=== PATIENT | male | born 1985 | race Caucasian/White ===

== ENCOUNTER 2018-01-23 02:37 | Inpatient (IN) | payer MEDICAID, OTHER ==
[2018-01-23 03:44] LABS: Amphetamine Screen,Urine Not Detected (NotDetected); Barbiturate Screen,Urine Not Detected (NotDetected); Benzodiazepines Screen,Urine Not Detected (NotDetected); Cocaine Screen,Urine Not Detected (NotDetected); Methadone Screen, Urine Not Detected (NotDetected); Opiate Screen,Urine Not Detected (NotDetected); Oxycodone Screen, Urine Not Detected (NotDetected); Phencyclidine Screen,Urine Not Detected (NotDetected); Tricyclic Antidepressant,Urine Not Detected (NotDetected); Urn Cannabinoid Scrn Detected (NotDetected)
[2018-01-23 03:47] LABS: HCT 46.2 % (39.0-53.0); HGB 15.2 gm/dL (13.0-17.5); MCH 31.2 pg (25.0-35.0); MCHC 32.9 g/dL (31.0-37.0); MCV 94.7 fL (80.0-100.0); Mean Platelet Volume 7.1; Platelet Count 342 k/uL (150-450); RBC 4.88 m/uL (4.30-5.90); RDW 12.8 % (11.5-15.5); WBC 12.5 k/uL (3.8-10.6)
[2018-01-23 03:59] LABS: Band Neutrophils % 1 %; Eosinophils # (M) 0.38 k/uL (0-0.7); Lymphocytes # (M) 2.25 k/uL (1.0-4.8); Neutrophils % (M) 70 %; Nucleated Red Blood Cells 0 /100 WBC (0-0); Total Cells Counted 100
[2018-01-23 04:04] LABS: Anion Gap 10 mmol/L; Blood Urea Nitrogen 9 mg/dL (9-20); Carbon Dioxide 22 mmol/L (22-30); Chloride 110 mmol/L (98-107); Glucose 94 mg/dL (74-99); Potassium 4.8 mmol/L (3.5-5.1); Sodium 142 mmol/L (137-145)
--- NOTE | 2018-01-23 04:12 | ED ---
Psych HPI - General Chief Complaint: Psychiatric Symptoms Stated Complaint: Mental Health Time Seen by Provider: 01/23/18 03:29 Source: patient Mode of arrival: ambulatory - History of Present Illness Initial Comments: This patient is a 32-year-old man brought to have psychiatric evaluation. The patient reports that his girlfriend had called police to have him evaluated. He states that he had become angry over being accused of using methamphetamine, after he tested positive for that. The patient reports he was taking a cough medicine for an upper respiratory infection then that he believes this is responsible for the positive test. He states that he had angry and did a couple of days of drinking. During that time he states that he did make some suicidal statements to his girlfriend. There is a petition that accompanies the patient stating that he has made suicidal statements. MD Complaint: other -: days(s) Associated Psychiatric Symptoms: depression Improves With: none Worsens With: none Context: recent alcohol abuse Associated Symptoms: denies other symptoms - Related Data Home Medications Medication Instructions Recorded Confirmed No Known Home Medications 01/23/18 01/23/18 Allergies Allergy/AdvReac Type Severity Reaction Status Date / Time No Known Allergies Allergy Verified 01/23/18 02:56 Review of Systems ROS Statement: Those systems with pertinent positive or pertinent negative responses have been documented in the HPI. ROS Other: All systems not noted in ROS Statement are negative. Constitutional: Denies: fever, chills Eyes: Denies: vision change Respiratory: Denies: cough, dyspnea Cardiovascular: Denies: chest pain Gastrointestinal: Denies: abdominal pain, vomiting, diarrhea Musculoskeletal: Denies: back pain Neurological: Denies: headache Psychiatric: Reports: depression. Denies: auditory hallucinations, visual hallucinations, homicidal thoughts, suicidal thoughts Past Medical History Past Medical History: No Reported History History of Any Multi-Drug Resistant Organisms: None Reported Past Surgical History: No Surgical Hx Reported Past Psychological History: ADD/ADHD Smoking Status: Current every day smoker Past Alcohol Use History: Daily Past Drug Use History: Marijuana General Exam Limitations: no limitations General appearance: alert, in no apparent distress Head exam: Present: atraumatic, normocephalic Eye exam: Present: normal appearance. Absent: scleral icterus, conjunctival injection ENT exam: Present: normal oropharynx Respiratory exam: Present: normal lung sounds bilaterally. Absent: respiratory distress, wheezes, rales, rhonchi, stridor Cardiovascular Exam: Present: regular rate, normal rhythm, normal heart sounds. Absent: systolic murmur, diastolic murmur, rubs, gallop GI/Abdominal exam: Present: soft. Absent: distended, tenderness, guarding, rebound, mass Neurological exam: Present: alert, normal gait Psychiatric exam: Present: normal affect. Absent: normal mood, depressed, agitated, anxious, flat affect Skin exam: Present: warm, dry, intact, normal color. Absent: rash Course Vital Signs 01/23/18 02:50 Temperature 98.4 F Pulse Rate 120 H Respiratory 18 Rate Blood Pressure 110/70 O2 Sat by Pulse 99 Oximetry Medical Decision Making - Lab Data Result diagrams: 01/23/18 03:36 01/23/18 03:36 Lab Results 01/23/18 01/23/18 01/23/18 Range/Units 03:01 03:36 03:36 WBC 12.5 H (3.8-10.6) k/uL RBC 4.88 (4.30-5.90) m/uL Hgb 15.2 (13.0-17.5) gm/dL Hct 46.2 (39.0-53.0) % MCV 94.7 (80.0-100.0) fL MCH 31.2 (25.0-35.0) pg MCHC 32.9 (31.0-37.0) g/dL RDW 12.8 (11.5-15.5) % Plt Count 342 (150-450) k/uL Neutrophils % (Manual) 70 % Band Neutrophils % 1 % Lymphocytes % (Manual) 18 % Monocytes % (Manual) 8 % Eosinophils % (Manual) 3 % Neutrophils # [place]DELER Neutrophils # (Manual) 8.80 H (1.3-7.7) k/uL Lymphocytes # (Manual) 2.25 (1.0-4.8) k/uL Monocytes # (Manual) 1.00 (0-1.0) k/uL Eosinophils # (Manual) 0.38 (0-0.7) k/uL Nucleated RBCs 0 (0-0) /100 WBC Manual Slide Review Performed Sodium 142 (137-145) mmol/L Potassium 4.8 (3.5-5.1) mmol/L Chloride 110 H (98-107) mmol/L Carbon Dioxide 22 (22-30) mmol/L Anion Gap 10 mmol/L BUN 9 (9-20) mg/dL Creatinine 0.96 (0.66-1.25) mg/dL Est GFR (CKD-EPI)AfAm >90 (>60 ml/min/1.73 sqM) Est GFR (CKD-EPI)NonAf >90 (>60 ml/min/1.73 sqM) Glucose 94 (74-99) mg/dL Calcium 9.0 (8.4-10.2) mg/dL Urine Opiates Screen Not Detected (NotDetected) Ur Oxycodone Screen Not Detected (NotDetected) Urine Methadone Screen Not Detected (NotDetected) Ur Propoxyphene Screen Not Detected (NotDetected) Ur Barbiturates Screen Not Detected (NotDetected) U Tricyclic Antidepress Not Detected (NotDetected) Ur Phencyclidine Scrn Not Detected (NotDetected) Ur Amphetamines Screen Not Detected (NotDetected) U Methamphetamines Scrn Not Detected (NotDetected) U Benzodiazepines Scrn Not Detected (NotDetected) Urine Cocaine Screen Not Detected (NotDetected) U Marijuana (THC) Screen Detected H (NotDetected) Disposition Referrals: None,Stated [Primary Care Provider] - 1-2 days
[2018-01-23] MEDS ORDERED: MAGNESIUM HYDROXIDE 2,400 MG/10 ML CUP PO PRN (15:26)
[2018-01-23] MEDS ORDERED: MAG HYDROX/AL HYDROX/SIMETH 30 ML CUP PO PRN (15:26)
[2018-01-23] MEDS ORDERED: ACETAMINOPHEN TAB 325 MG TAB PO PRN (15:26)
[2018-01-23] MEDS ORDERED: ZIPRASIDONE 20 MG VIAL IM PRN (15:26)
[2018-01-23] MEDS ORDERED: LORazepam 1 MG TAB PO PRN (15:26)
[2018-01-24 06:55] VITALS: RESP 14
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
[2018-01-24] MEDS ORDERED: NICOTINE 21MG/24HR PATCH TRANSDERM PRN (13:45)
[2018-01-24] MEDS ORDERED: LORATADINE 10 MG TAB PO PRN (14:45)
[2018-01-24] MEDS ORDERED: guaiFENesin 600 MG TABLET.ER PO PRN (14:45)
--- NOTE | 2018-01-24 14:48 | P.HPMEDMHU ---
History of Present Illness H&P Date: 01/24/18 Chief Complaint: suicidal ideation Patient is a 32-year-old male with a history of ADHD who has been admitted to the mental health unit after making a suicidal statement and demonstrating aggressive behavior. We are asked to consult for his medical H&P. Patient seen and examined. He reports that he hadn't cold-like symptoms for about a week but they're starting to get better. He had a runny nose, cough that was not productive of sputum, and chest congestion. He also reports sore throat and postnasal drip. These fall been greatly improving. He also reports some diarrhea which has since resolved. He states that he got upset because he tested positive on a drug screen after having taking cold medications. That's what started his downhill spiral. He drinks approximately 2-3 "double duses and a few shots". He smokes approximately 2 packs per day. He does not have a family doctor. He reports no chest pain, palpitations, syncope, nausea, vomiting, dysuria, urinary frequency, insomnia, changes in appetite, and weight loss Review of Systems Pertinent positives and negatives as discussed in HPI, a complete review of systems was performed and all other systems are negative. Past Medical History Additional Past Medical History / Comment(s): ADHD History of Any Multi-Drug Resistant Organisms: None Reported Past Surgical History: No Surgical Hx Reported Past Psychological History: ADD/ADHD Smoking Status: Current every day smoker Past Alcohol Use History: Daily, Heavy Past Drug Use History: Marijuana - Past Family History Mother Family Medical History: No Reported History Father Family Medical History: No Reported History Medications and Allergies Home Medications Medication Instructions Recorded Confirmed Type Dm/Acetaminophen/Doxylamine [Vicks 1 cap PO Q12HR PRN 01/23/18 01/23/18 History Nyquil Liquicaps] Allergies Allergy/AdvReac Type Severity Reaction Status Date / Time No Known Allergies Allergy Verified 01/23/18 08:47 Physical Exam Osteopathic Statement: *. No significant issues noted on an osteopathic structural exam other than those noted in the History and Physical/Consult. Vitals: Vital Signs Temp Pulse Pulse Resp BP BP Pulse Ox 01/24/18 06:54 97.7 F 76 14 114/96 01/23/18 15:39 99.9 F H 76 18 127/82 01/23/18 14:10 98.6 F 68 18 130/68 99 General: non toxic, no distress, appears at stated age, normal weight Derm: no unusual rashes/lesions no unusual ecchymoses, warm, dry Head: atraumatic, normocephalic, symmetric Eyes: EOMI, no lid lag, anicteric sclera, pupils equal round reactive to light ENT: Nose and ears atraumatic, no thrush, + pharyngeal erythema, + post nasal drip Neck: No thyromegaly, no cervical lymphadenopathy, trachea midline, supple Mouth: no lip lesion, mucus membranes moist Cardiovascular: S1S2 reg, no murmur, positive posterior tibial pulse bilateral, no edema, capillary refill less than 2 seconds Lungs: CTA bilateral, no rhonchi, no rales , no accessory muscle use Abdominal: soft, nontender to palpation, no guarding, no appreciable organomegaly, normal bowel sounds Ext: no gross muscle atrophy, muscle strength grossly intact all 4 extremities grossly, no contractures, Neuro: CN II-XI grossly intact, finger to nose within normal limits, Psych: Alert, oriented, appropriate affect Cranial Nerve Examination - Cranial Nerves Cranial Nerve II- Optic: Intact Cranial Nerve III- Oculomotor: Intact Cranial Nerve IV- Trochlear: Intact Cranial Nerve V- Trigeminal: Intact Cranial Nerve - Abducens: Intact Cranial Nerve VII- Facial: Intact Cranial Nerve VIII- Auditory: Intact Cranial Nerve IX- Glossopharyngeal: Intact Cranial Nerve X- Vagus: Intact Cranial Nerve XI- Accessory: Intact Cranial Nerve XII- Hypoglossal: Intact Results CBC & Chem 7: 01/23/18 03:36 01/23/18 03:36 Thrombosis Risk Factor Assmnt - DVT/VTE Prophylaxis DVT/VTE Prophylaxis: Pharmacologic Prophylaxis ordered Assessment and Plan Assessment: Upper respiratory tract infection -Claritin -As needed Mucinex -Check temperature this evening and again in a.m. to ensure that he does not spike Nicotine abuse -Nicotine cessation -Nicotine replacement Alcohol abuse -Thiamine supplementation -Management and larger withdrawal symptoms as per psychiatry Suicidal ideation -Your psych management Thank you for allowing us to participate in the care of this patient. We will follow peripherally. Do not hesitate to contact us with questions. Someone can be reached from the [facility] hospitalist group at all hours of the day at [phone].
--- NOTE | 2018-01-25 08:52 | P.PN ---
Subjective Progress Note Date: 01/25/18 Principal diagnosis: Mood disorder unspecified, rule out adjustment disorder, alcohol use disorder, rule out cannabis use disorder, rule out ADHD Progress Note - Text Interval history: The patient is found in the hallway headed to group he follows me to an interview room. Again the patient's is difficult to communicate with at times due to his expressive aphasia. He seems to answer some questions briefly. He indicates he slept last night. He indicates not liking the food here. He tries to communicate something to me verbally and by doing hand demonstration. I had him try to write out what he is trying to communicate and that was unsuccessful. He had written several letters some backwards and wrote 3 numbers. He demonstrates frustration in that he cannot express himself verbally or in writing. He indicates that he feels somewhat safe here but cannot expand on that answer. It appears he was compliant with the Depakote. Mental status exam: The patient is a male appearing his stated age she has a disheveled appearance he is dressed in hospital gowns. He is abrupt with his actions. He was cooperative and pleasant despite his frustrations with his lack of ability to express. He denies having any thoughts of harming himself or others. He is not able to provide any explanation for the aggressive behavior that was alleged prior to this admission. He endorses no hallucinations. 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 He appears distractible and stimulus bound throughout the session. Plan: We will continue the patient on the Depakote as written. We have begun a discussion regarding his placement needs once he is stabilized. We will need to determine if he is going to be eligible for [facility] placement through [facility] or if he will need to pursue [facility] home placement if financial resources are available. We will collaborate with his guardian regarding his treatment and discharge planning. Vital signs reviewed. We will continue to monitor him for safety. Objective - Vital Signs Vital signs: Vital Signs Temp 98.5 F 01/24/18 20:49 Pulse 76 01/24/18 06:54 Resp 14 01/24/18 06:54 BP 114/96 01/24/18 06:54 Pulse Ox 99 01/23/18 14:10 - Labs CBC & Chem 7: 01/23/18 03:36 01/23/18 03:36
[2018-01-25] MEDS: THIAMINE 100 MG TAB PO SCH (11:28)
[2018-01-25 12:39] LABS: Appearance,Urine Clear (Clear); Bilirubin,Urine Negative (Negative); Blood,Urine Negative (Negative); Color,Urine Yellow; Glucose,Urine (UA) 1+ (Negative); Ketones,Urine Negative (Negative); Leukocyte Esterase,Urine Negative (Negative); Nitrite,Urine Negative (Negative); Protein,Urine Trace (Negative); Specific Gravity,Urine 1.025 (1.001-1.035); Urobilinogen,Urine <2.0 mg/dL (<2.0)
--- NOTE | 2018-01-26 09:41 | P.PN ---
Subjective Progress Note Date: 01/26/18 Principal diagnosis: Mood disorder unspecified, rule out adjustment disorder, alcohol use disorder, rule out cannabis use disorder, rule out ADHD Progress Note - Text Interval history: The patient is found in the hallway headed to group he follows me to an interview room. Again the patient's is difficult to communicate with at times due to his expressive aphasia. He seems to answer some questions briefly. He indicates he slept last night. He indicates not liking the food here. He tries to communicate something to me verbally and by doing hand demonstration. I had him try to write out what he is trying to communicate and that was unsuccessful. He had written several letters some backwards and wrote 3 numbers. He demonstrates frustration in that he cannot express himself verbally or in writing. He indicates that he feels somewhat safe here but cannot expand on that answer. It appears he was compliant with the Depakote. Mental status exam: The patient is a male appearing his stated age she has a disheveled appearance he is dressed in hospital gowns. He is abrupt with his actions. He was cooperative and pleasant despite his frustrations with his lack of ability to express. He denies having any thoughts of harming himself or others. He is not able to provide any explanation for the aggressive behavior that was alleged prior to this admission. He endorses no hallucinations. 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 He appears distractible and stimulus bound throughout the session. Plan: We will continue the patient on the Depakote as written. We have begun a discussion regarding his placement needs once he is stabilized. We will need to determine if he is going to be eligible for [facility] placement [facility] or if he will need to pursue [facility] home placement if financial resources are available. We will collaborate with his guardian regarding his treatment and discharge planning. Vital signs reviewed. We will continue to monitor him for safety. Objective - Vital Signs Vital signs: Vital Signs Temp 97.6 F 01/26/18 06:11 Pulse 59 L 01/26/18 06:11 Resp 14 01/26/18 06:11 BP 115/69 01/26/18 06:11 Pulse Ox 99 01/23/18 14:10 - Labs CBC & Chem 7: 01/23/18 03:36 01/23/18 03:36 Labs: Abnormal Lab Results - Last 24 Hours (Table) 01/25/18 Range/Units 12:15 Urine Protein Trace H (Negative) Urine Glucose (UA) 1+ H (Negative) Assessment and Plan Assessment: IMPRESSIONS: [] 1. Mood disorder unspecified, rule out adjustment disorder, alcohol use disorder, rule out cannabis use disorder, rule out ADHD PLAN: The patient has been admitted to the mental health unit he has signed in voluntarily. We reviewed his presenting symptoms and treatment options. The patient indicates he does not wish to be prescribed a psychotropic medication. We discussed his alcohol use in some detail. He is resistant to the idea of attending inpatient chemical dependency treatment and states "I can just stop using alcohol". We discussed that he may be masking mood or anxiety symptoms with use of alcohol but he does not feel that that is an accurate characterization of his situation. He will be seen by internal medicine for routine history and physical exam. We will monitor him for safety. Social work will meet with the patient to complete a psychosocial assessment. We will involve friends/family in treatment and discharge planning as he will allow. Time with Patient: Less than 30
[2018-01-26] MEDS: THIAMINE 100 MG TAB PO SCH (11:54)
--- NOTE | 2018-01-26 13:08 | P.PN ---
Subjective Progress Note Date: 01/25/18 Principal diagnosis: Mood disorder unspecified, rule out adjustment disorder, alcohol use disorder, rule out cannabis use disorder, rule out ADHD DENTIFYING DATA: This patient is a 32-year-old but male who was admitted to the mental health unit after making suicidal statements and demonstrating aggressive behavior. HPI: Her the documentation the patient presented with a petition indicating he made suicidal statements of cutting his wrists and not wanting to live anymore if his girlfriend broke up with him. He made generalized statements of harming others. He reportedly demonstrated aggressive behavior punching ATV and throwing objects at his place of residence. The patient states he does not recall making any statements of self-harm or harm to others but states he was grossly intoxicated with alcohol at the time. He admits that he is verbally and physically aggressive when he drinks alcohol. He indicates that he became upset after being disqualified for a job he was hoping to get as his urine drug screen came back positive for amphetamines. 01/25/2018:He denies any suicidal ideation today and adapting to [place] [facility] therapeutic environment Objective - Vital Signs Vital signs: Vital Signs Temp 97.6 F 01/26/18 06:11 Pulse 59 L 01/26/18 06:11 Resp 14 01/26/18 06:11 BP 115/69 01/26/18 06:11 Pulse Ox 99 01/23/18 14:10 - Labs CBC & Chem 7: 01/23/18 03:36 01/23/18 03:36 Assessment and Plan Assessment: IMPRESSIONS: 1. Mood disorder unspecified, rule out adjustment disorder, alcohol use disorder, rule out cannabis use disorder, rule out ADHD PLAN: The patient has been admitted to the mental health unit he has signed in voluntarily. We reviewed his presenting symptoms and treatment options. The patient indicates he does not wish to be prescribed a psychotropic medication. We discussed his alcohol use in some detail. He is resistant to the idea of attending inpatient chemical dependency treatment and states "I can just stop using alcohol". We discussed that he may be masking mood or anxiety symptoms with use of alcohol but he does not feel that that is an accurate characterization of his situation. He will be seen by internal medicine for routine history and physical exam. We will monitor him for safety. Social work will meet with the patient to complete a psychosocial assessment. We will involve friends/family in treatment and discharge planning as he will allow. Maintain medications and further evaluation Time with Patient: Less than 30
--- NOTE | 2018-01-26 13:09 | P.PN ---
Subjective Progress Note Date: 01/26/18 Principal diagnosis: Mood disorder unspecified, rule out adjustment disorder, alcohol use disorder, rule out cannabis use disorder, rule out ADHD DENTIFYING DATA: This patient is a 32-year-old but male who was admitted to the mental health unit after making suicidal statements and demonstrating aggressive behavior. HPI: Her the documentation the patient presented with a petition indicating he made suicidal statements of cutting his wrists and not wanting to live anymore if his girlfriend broke up with him. He made generalized statements of harming others. He reportedly demonstrated aggressive behavior punching ATV and throwing objects at his place of residence. The patient states he does not recall making any statements of self-harm or harm to others but states he was grossly intoxicated with alcohol at the time. He admits that he is verbally and physically aggressive when he drinks alcohol. He indicates that he became upset after being disqualified for a job he was hoping to get as his urine drug screen came back positive for amphetamines. 01/26/2018:He denies any suicidal ideation today and adapting to [place] and milieu therapeutic environment somewhat depressed today Objective - Vital Signs Vital signs: Vital Signs Temp 97.6 F 01/26/18 06:11 Pulse 59 L 01/26/18 06:11 Resp 14 01/26/18 06:11 BP 115/69 01/26/18 06:11 Pulse Ox 99 01/23/18 14:10 - Labs CBC & Chem 7: 01/23/18 03:36 01/23/18 03:36 Assessment and Plan Assessment: IMPRESSIONS: 1. Mood disorder unspecified, rule out adjustment disorder, alcohol use disorder, rule out cannabis use disorder, rule out ADHD PLAN: The patient has been admitted to the mental health unit he has signed in voluntarily. We reviewed his presenting symptoms and treatment options. The patient indicates he does not wish to be prescribed a psychotropic medication. We discussed his alcohol use in some detail. He is resistant to the idea of attending inpatient chemical dependency treatment and states "I can just stop using alcohol". We discussed that he may be masking mood or anxiety symptoms with use of alcohol but he does not feel that that is an accurate characterization of his situation. He will be seen by internal medicine for routine history and physical exam. We will monitor him for safety. Social work will meet with the patient to complete a psychosocial assessment. We will involve friends/family in treatment and discharge planning as he will allow. Maintain medications and further evaluation Time with Patient: Less than 30
[2018-01-27 00:29] VITALS: BP 115/72; PULSE 73; TEMP 98.1
[2018-01-27] MEDS: THIAMINE 100 MG TAB PO SCH (08:31)
--- NOTE | 2018-01-27 09:39 | P.DS ---
Providers Date of admission: 01/23/18 13:55 Expected date of discharge: 01/27/18 Attending physician: Brody Tamez Consults: 01/24/18 11:42 Consult Physician Routine Consulting Provider: Kenisha Virgen Consult Reason/Comments: H and P Do you want consulting provider notified?: Yes Primary care physician: Gagandeep Sanabria - Discharge Diagnosis(es) (1) Unspecified episodic mood disorder Current Visit: Yes Status: Acute Priority: High (2) Alcohol use disorder Current Visit: Yes Status: Acute Priority: High Hospital Course: Brief summary of admission note: This patient is a 32-year-old male who is admitted to the mental health unit after making statements of wanting to cut his wrists and not want to live anymore. Apparently he made the statements while intoxicated with alcohol. He was brought into the emergency room for further evaluation. The patient reportedly demonstrated aggressive behavior and damaged items at his place of residence. Upon evaluation he stated he did not recall making any of these statements but admits that he gets verbally and physically aggressive when he uses alcohol. He states he was upset after being disqualified for a job he was applying for due to a positive result on his urine drug screen. He then began drinking. He admits that he has been overusing alcohol and that he needs to stop. For full detail please refer to my psychiatric evaluation dictated 01/24/2018. Summary of hospital course: The patient was admitted to the mental health unit he signed in voluntarily. We reviewed his presenting symptoms and treatment options. The patient felt as though his hesitation was strictly due to his use of alcohol. He did not wish to have any psychotropic medication provided. We discussed treatment options for alcohol use disorder. He does not wish to participate in inpatient chemical dependency treatment and does not wish to participate in AA meetings. He is willing to work with an individual psychotherapist as part of his follow-up plan. The patient was evaluated over the last several days he is reporting no suicidal ideation intent or plan. He has demonstrated no agitated behavior. A family meeting was conducted and facilitated by social work. Notes from that meeting were reviewed. He is able to return to his residence. The patient has been participating in group. He is demonstrated no agitated behavior. He is able to participate in his own activities of daily living. There is no evidence of psychosis hypomania or frances. Mental status exam: The patient is a tall thin male he wears his hair as a [place]. He is dressed in his own clothing hygiene grooming are adequate. He is pleasant cooperative and easily directed. Speech is spontaneous fluent nonpressured. He demonstrates no tangential thinking loose associations or flight of ideas. He does not appear hypomanic or manic. He reports no hopelessness thinking he reports no suicidal ideation intent or plan. He reports no homicidal ideation intent or plan. He demonstrates no verbal or physical aggressiveness. He demonstrates no abnormal involuntary movements. Insight and judgment grossly intact. He remains oriented to person place and date. He demonstrates a euthymic affect. Impressions 1. Mood disorder unspecified, rule out mood symptoms secondary to alcohol use, alcohol use disorder, rule out cannabis use disorder, rule out ADHD Plan: The patient will be discharged from mental health unit today he will return to his prior residence. He does reside with his girlfriend. He has not been prescribed any psychotropic medication. We encouraged inpatient chemical dependency treatment but he defers that option. We encouraged AA attendance but he defers that as well. He is willing to meet with an outpatient psychotherapist. We discussed utilizing a medication to reduce cravings for alcohol but he does not feel that is necessary and declines that option as well. There is no imminent safety risk. He is instructed to abstain from any use of alcohol marijuana or any other illicit drug as they will elevate his safety risk. He is instructed to return to the hospital with any acute safety concerns. Patient Condition at Discharge: Stable Plan - Discharge Summary New Discharge Prescriptions: New Nicotine 21Mg/24Hr Patch [Habitrol] 1 patch TRANSDERM DAILY PRN #12 patch PRN Reason: Nicotine Cravings Discontinued Dm/Acetaminophen/Doxylamine [Vicks Nyquil Liquicaps] 1 cap PO Q12HR PRN PRN Reason: Cough Discharge Medication List Nicotine 21Mg/24Hr Patch [Habitrol] 1 patch TRANSDERM DAILY PRN #12 patch [Rx] Follow up Appointment(s)/Referral(s): [facility] [Outside] - 01/29/18 12:15 pm (01/29/18 at 1215 with intake ) None,Stated [REFERRING] - 1-2 days
== END 2018-01-27 11:49 | disposition home or self-care (01) | DRG 885 ==
LOC: EC 02:37 → 3MHU 13:55
PROVIDERS: ADMIT Psychiatry & Neurology Psychiatry; ATTEND Psychiatry & Neurology Psychiatry
DX: F39 Unspecified mood [affective] disorder (principal); R45.851 Suicidal ideations; F10.129 Alcohol abuse with intoxication, unspecified; F12.90 Cannabis use, unspecified, uncomplicated; F15.90 Other stimulant use, unspecified, uncomplicated; F17.200 Nicotine dependence, unspecified, uncomplicated; F90.9 Attention-deficit hyperactivity disorder, unspecified type; J06.9 Acute upper respiratory infection, unspecified; Z81.8 Family history of other mental and behavioral disorders; Z71.6 Tobacco abuse counseling; Z56.0 Unemployment, unspecified
CPT/HCPCS: 36415; 80048; 80306; 81003; 82075; 84443; 85025; 99285

== ENCOUNTER 2018-05-02 17:00 | Emergency (ER) | payer OTHER ==
[2018-05-02 17:15] VITALS: BP 98/67; PULSE 78; RESP 16; TEMP 98
[2018-05-02] MEDS ORDERED: PENICILLIN VK 500MG STARTER 4 TAB BTL PO STA (17:29)
[2018-05-02] MEDS ORDERED: ONDANSETRON 4 MG ODT STARTER PACK 2 TAB BTL PO STA (17:31)
--- NOTE | 2018-05-02 17:31 | ED ---
ENT HPI - General Chief complaint: Dental/Oral Stated complaint: dental pain Time Seen by Provider: 05/02/18 17:21 Source: patient Mode of arrival: ambulatory Limitations: no limitations - History of Present Illness Initial comments: 33-year-old male patient presents to the emergency department today for evaluation of swelling to the teeth to the right lower mouth. Patient states he notices swelling yesterday. Patient states that it is making him feel nauseous. He has not vomited. Patient states he does have very poor dentition and needs to see a dentist. He states that he has felt feverish but has not checked his temperature. He denies any trismus or difficulty swallowing. Denies any significant pain to the area unless he presses the area of swelling. Patient denies any recent rash, shortness breath, chest pain, abdominal pain, diarrhea, constipation, back pain, numbness, tingling, dizziness, weakness, hematuria, dysuria, urinary urgency, urinary frequency, headache, visual changes , or any other complaints. - Related Data Previous Rx's Medication Instructions Recorded Ibuprofen [Motrin] 600 mg PO Q8HR PRN #30 tab 05/02/18 Penicillin V Potassium [Pen Vee K] 500 mg PO Q6H #40 tablet 05/02/18 Allergies Allergy/AdvReac Type Severity Reaction Status Date / Time No Known Allergies Allergy Verified 05/02/18 17:25 Review of Systems ROS Statement: Those systems with pertinent positive or pertinent negative responses have been documented in the HPI. ROS Other: All systems not noted in ROS Statement are negative. Past Medical History Past Medical History: No Reported History Additional Past Medical History / Comment(s): ADHD History of Any Multi-Drug Resistant Organisms: None Reported Past Surgical History: No Surgical Hx Reported Past Psychological History: ADD/ADHD Smoking Status: Current every day smoker Past Alcohol Use History: Rare Past Drug Use History: Marijuana - Past Family History Mother Family Medical History: No Reported History Father Family Medical History: No Reported History General Exam Limitations: no limitations General appearance: alert, in no apparent distress, other (Physical well- developed, well-nourished adult male patient in no acute distress. Vital signs upon presentation are temperature 98.0F, pulse 70, respiration 16, blood pressure 98/67, pulse ox 98% on room air.) Eye exam: Present: normal appearance, PERRL, EOMI. Absent: scleral icterus, conjunctival injection, periorbital swelling ENT exam: Present: mucous membranes moist, other (1cm x 1cm area of abscess to the lingual surface near tooth number 29. Not drainable at this time. ). Absent : normal exam, normal oropharynx Neck exam: Present: normal inspection. Absent: tenderness, meningismus, lymphadenopathy Respiratory exam: Present: normal lung sounds bilaterally. Absent: respiratory distress, wheezes, rales, rhonchi, stridor Cardiovascular Exam: Present: regular rate, normal rhythm, normal heart sounds. Absent: systolic murmur, diastolic murmur, rubs, gallop, clicks Neurological exam: Present: alert, oriented X3, CN II-XII intact Psychiatric exam: Present: normal affect, normal mood Skin exam: Present: warm, dry, intact, normal color. Absent: rash Course Vital Signs 05/02/18 17:13 Temperature 98 F Pulse Rate 78 Respiratory 16 Rate Blood Pressure 98/67 O2 Sat by Pulse 98 Oximetry Medical Decision Making - Medical Decision Making 33-year-old male patient presents to the emergency department today for evaluation of dental abscess. Physical examination does reveal a 1 cm x 1 cm area of swelling to the lingual surface of the gums near tooth #29. This is not drainable at the moment. Patient be started on penicillin and given anti- inflammatory pain medication. He is instructed to follow-up with dentistry as soon as possible. He is unsure if he has insurance so resources were provided to him. Return parameters were discussed in detail. He verbalizes understanding and agrees with this plan. Disposition Clinical Impression: Dental abscess Disposition: HOME SELF-CARE Condition: Good Instructions: Dental Abscess (ED), Dental Caries (ED) Additional Instructions: Complete antibiotic prescription in full. Take medication as directed. Follow up with dentistry as soon as possible. Follow-up with your primary care physician for recheck in 1-2 days. Return to the emergency department immediately for any new, worsening, or concerning symptoms. Please follow up with the [facility] dental clinic. [email or web address] [address]. Phone number for new patients or for existing patients. [facility]. Must pay for x-rays then services are free. Call for an appoitnment. Prescriptions: Ibuprofen [Motrin] 600 mg PO Q8HR PRN #30 tab PRN Reason: Pain Penicillin V Potassium [Pen Vee K] 500 mg PO Q6H #40 tablet Is patient prescribed a controlled substance at d/c from ED?: No Referrals: Gagandeep Sanabria MD [Primary Care Provider] - 1-2 days Time of Disposition: 17:31
== END 2018-05-02 17:46 | disposition home or self-care (01) ==
LOC: EC 17:00
DX: K04.7 Periapical abscess without sinus (principal); R11.0 Nausea; F17.200 Nicotine dependence, unspecified, uncomplicated
CPT/HCPCS: 99282; S0119

== ENCOUNTER 2018-12-10 08:31 | Emergency (ER) | payer OTHER ==
[2018-12-10 08:45] VITALS: TEMP 98
--- NOTE | 2018-12-10 09:06 | XR ---
EXAMINATION TYPE: XR chest 2V DATE OF EXAM: 12/10/2018 COMPARISON: NONE HISTORY: Chest pain TECHNIQUE: Frontal and lateral views of the chest are obtained. FINDINGS: There is no focal air space opacity. No evidence for pneumothorax. No pleural effusion. The cardiac silhouette size is within normal limits. The osseous structures are grossly intact. IMPRESSION: 1. No acute cardiopulmonary process.
[2018-12-10] MEDS ORDERED: KETOROLAC 60 MG/2 ML VIAL IM STA (09:30)
--- NOTE | 2018-12-10 09:30 | ED ---
General Adult HPI - General Chief complaint: Fall Stated complaint: LEFT RIB PAIN Time Seen by Provider: 12/10/18 08:48 Source: patient, RN notes reviewed, old records reviewed Mode of arrival: ambulatory Limitations: physical limitation - History of Present Illness Initial comments: 33-year-old male patient presents ED chief complaint of left lateral and anterior chest wall pain. As well as broken teeth. Patient reports that approximately one week ago he was skateboarding, hit a rock, fell for falling on his left flank, anterior chest wall region. Denies any trauma to head or neck, denies any loss of consciousness. Reports he has had pain in this region signs area patient reports that he clenches jaw upon falling, breaking a previously diseased tooth his right lower molar. Patient denies any other complaints at this time. Systemic: Pt denies fatigue, fever/chills, rash. Pt denies weakness, night sweats, weight loss. Neuro: Pt denies headache, visual disturbances, syncope or pre-syncope. HEENT: Pt denies ocular discharge or irritation, otalgia, rhinorrhea, pharyngitis or notable lymphadenopathy. Cardiopulmonary: Pt denies SOB, heart palpitations, dyspnea on exertion. Abdominal/GI: Pt denies abdominal pain, n/v/d. : Pt denies dysuria, burning w/ urination, frequency/urgency. Denies new onset urinary or bowel incontinence. MSK: Pt denies myalgia, loss of strength or function in extremities. Neuro: Pt denies new onset weakness, paresthesias. - Related Data Home Medications Medication Instructions Recorded Confirmed Ibuprofen [Motrin Ib] 600 mg PO Q6H PRN 12/10/18 12/10/18 Previous Rx's Medication Instructions Recorded Penicillin V Potassium [Pen Vee K] 500 mg PO QID 7 Days tablet 12/10/18 Allergies Allergy/AdvReac Type Severity Reaction Status Date / Time No Known Allergies Allergy Verified 12/10/18 09:03 Review of Systems ROS Statement: Those systems with pertinent positive or pertinent negative responses have been documented in the HPI. ROS Other: All systems not noted in ROS Statement are negative. Past Medical History Past Medical History: No Reported History Additional Past Medical History / Comment(s): ADHD History of Any Multi-Drug Resistant Organisms: None Reported Past Surgical History: No Surgical Hx Reported Past Psychological History: ADD/ADHD Smoking Status: Current every day smoker Past Alcohol Use History: Rare Past Drug Use History: Marijuana - Past Family History Mother Family Medical History: No Reported History Father Family Medical History: No Reported History General Exam - General Exam Comments Initial Comments: Constitutional: NAD, AOX3, Pt has pleasant affect. HEENT: NC/AT, trachea midline, neck supple, no lymphadenopathy. Posterior pharynx non erythematous, without exudates. External ears appear normal, without discharge. Mucous membranes moist. Eyes PERRLA, EOM intact. There is no scleral icterus. No pallor noted. Right lower molar broken, no erythema, no drainable abscess. Cardiopulmonary: RRR, no murmurs, rubs or gallops, no JVD noted. Lungs CTAB in anterior and posterior goodman. No peripheral edema. Abdominal exam: Abdomen soft and non-distended. Abdomen non-tender to palpation in all 4 quadrants. Bowel sounds active in LLQ. No hepatosplenomegaly. No ecchymosis Neuro: CN II-XII grossly intact. No nuchal rigidity. No raccon eyes, no angeles sign, no hemotympanum. No cervical spinal tenderness. MSK: Anterior chest wall mildly tender to palpation, no ecchymoses, no defects. No posterior calf tenderness bilaterally, homans sign negative bilaterally. Posterior tibialis and radial pulse +2 bilaterally. Sensation intact in upper and lower extremities. Full active ROM in upper and lower extremities, 5/5 stregnth. Limitations: physical limitation Course Vital Signs 12/10/18 08:41 Temperature 98 F Pulse Rate 72 Respiratory 18 Rate Blood Pressure 139/85 O2 Sat by Pulse 99 Oximetry Medical Decision Making - Medical Decision Making 33-year-old male patient presents to ED chief complaint of anterior chest wall pain, lateral flank pain after fall from skateboard one week ago. Patient also broke tooth and fall. Patient also in stable, afebrile. Physical exam displayed after just felt mildly tender to palpation. Broken tooth. Chest x- ray revealed no acute process. Patient discharged with pen vk for dental prophylaxis. Return precautions discussed. Case discussed with Dr. Cheng. Disposition Clinical Impression: Pain, dental, Fall Disposition: HOME SELF-CARE Condition: Stable Instructions (If sedation given, give patient instructions): Musculoskeletal Pain (ED) Additional Instructions: Patient to adhere to previously discussed treatment plan and will take medication(s) as directed. Patient to follow up with PCP in 1-2 days. Patient to return to ED if symptoms do not improve. Take medication as prescribed. Use Tylenol and Motrin as needed for pain. Follow-up with dentist as soon as possible. Prescriptions: Penicillin V Potassium [Pen Vee K] 500 mg PO QID 7 Days tablet Is patient prescribed a controlled substance at d/c from ED?: No Referrals: Gagandeep Sanabria MD [Primary Care Provider] - 1-2 days Verona Loaiza DDS [STAFF PHYSICIAN] - 1-2 days Ray Buck DDS [STAFF PHYSICIAN] - 1-2 days Shonda Bush DDS [STAFF PHYSICIAN] - 1-2 days
[2018-12-10 09:46] VITALS: BP 114/82; PULSE 66; RESP 14
== END 2018-12-10 09:39 | disposition home or self-care (01) ==
LOC: EC 08:31
DX: S02.5XXA Fracture of tooth (traumatic), initial encounter for closed fracture (principal); R07.89 Other chest pain; R10.9 Unspecified abdominal pain; F17.200 Nicotine dependence, unspecified, uncomplicated; V00.132A Skateboarder colliding with stationary object, initial encounter; V00.131A Fall from skateboard, initial encounter; Y93.51 Activity, roller skating (inline) and skateboarding
CPT/HCPCS: 71046; 99284; 96372; J1885